=== PATIENT | male | born 1950 | race Caucasian/White ===

== ENCOUNTER 2020-03-06 06:37 | Outpatient (CLI) | payer MEDICARE ==
[2020-03-06 13:52] LABS: Hemoglobin 13.1 g/dL (14.0-18.0); Mean Corpuscular HGB CONC 31.2 G/DL (32.0-36.0); Mean Corpuscular Volume 86.6 fl (80.0-100.0); Mean Platelet Volume 8.4 fl (7.4-10.4); Platelet Count 309 10x3/uL (130-400); RBC Distribution Width 16.4 % (11.5-14.5); Red Blood Cell (RBC) Count 4.85 10x6/uL (4.40-5.80); White Blood Cell (WBC) Count 10.3 10x3/uL (4.5-11.0)
[2020-03-06 14:02] LABS: Anion Gap 18 mmol/L (10-20); BUN (Urea Nitrogen) 13 mg/dL (8.4-25.7); Calc. Creatinine Clearance 0 mL/min (70-130); Calcium 9.2 mg/dL (7.8-10.44); Carbon Dioxide 22 mmol/L (23-31); Chloride 98 mmol/L (98-107); Estimated GFR-MDRD 76; Glucose 127 mg/dL (80-115); Potassium 4.8 mmol/L (3.5-5.1); Sodium 133 mmol/L (136-145)
[2020-03-07 03:08] LABS: SARS-CoV-2 MS2 Positive; SARS-CoV-2 N Gene Negative; SARS-CoV-2 S Gene Negative; SARS-CoV-2 by NAA Not Detected (NotDetected); SARS-CoV-2 orf1ab Negative
--- NOTE | 2020-03-08 07:05 | EKG ---
Test Reason : Blood Pressure : / mmHG Vent. Rate : 112 BPM Atrial Rate : 112 BPM P-R Int : 160 ms QRS Dur : 098 ms QT Int : 334 ms P-R-T Axes : 056 070 059 degrees QTc Int : 455 ms Sinus tachycardia Possible Left atrial enlargement Borderline ECG Confirmed by DR. Celeste OSMAN ([id number]) on 03/08/2020 7:05:18 AM Referred By: MERVIN Confirmed By:DR. Celeste OSMAN
== END 2020-03-06 06:38 | disposition home or self-care (01) ==
LOC: LABBT 06:37
PROVIDERS: ATTEND Neurological Surgery
DX: Z01.818 Encounter for other preprocedural examination (principal); S83.206A Unspecified tear of unspecified meniscus, current injury, right knee, initial encounter; Z20.828 Contact with and (suspected) exposure to other viral communicable diseases
CPT/HCPCS: 80048; 85027; 93005; U0003; 87635; 93010

== ENCOUNTER 2020-03-11 06:24 | Observation (INO) | payer MEDICARE ==
[2020-03-11] MEDS ORDERED: Sodium Chloride 0.9% 10 ML ONE ×3 (06:40→17:20)
[2020-03-11] MEDS ORDERED: Fentanyl 100 MCG/2 ML VIAL ONE (07:00)
[2020-03-11] MEDS ORDERED: Famotidine/PF 20 mg/2ml Vial ONE (07:46)
[2020-03-11] MEDS ORDERED: SUGAMMADEX SODIUM 200 MG/2 ML VIAL ONE (07:53)
[2020-03-11] MEDS ORDERED: Promethazine HCl 25 MG/ML VIAL SLOW IVP PRN (09:34)
[2020-03-11] MEDS ORDERED: Promethazine HCl 25 MG/ML VIAL IM PRN (09:34)
[2020-03-11] MEDS ORDERED: HYDROmorphone 2 MG/ML VIAL SLOW IVP PRN (09:34)
[2020-03-11] MEDS ORDERED: Meperidine HCl/PF 25 MG/ML VIAL SLOW IVP PRN (09:34)
--- NOTE | 2020-03-11 10:23 | OP ---
DATE OF PROCEDURE: 03/11/2020 FLAT BED KNITTER: Nikhil. PROCEDURES PERFORMED: Anterior cervical diskectomy, C5-C6 and C6-C7; interbody arthrodesis; intervertebral biomechanical device; local morselized autograft; demineralized bone matrix; anterior titanium instrumentation, C5-C6 and C6-C7. DESCRIPTION OF PROCEDURE: The patient was brought to the operating room and intubated. He was positioned supine with the head in modest extension on a gel-filled donut. An incision was made in the right precervical area and dissected medial to the sternocleidomastoid muscle, identified the anterior cervical spine and the level was confirmed by x-ray. We debrided the anterior osteophytes, placed distraction across the disk spaces, and using operative microscope and microdissection techniques, completely removed the intervertebral disks at C5-C6 and C6-C7. Next, the bony endplates were decorticated for the purpose of arthrodesis and appropriate-sized intervertebral biomechanical PEEK device was brought into the field, filled with demineralized bone matrix and local morselized autograft, and tapped into place securely at C5-C6 and C6-C7. Next, an anterior plate was brought into the field and secured to C5, C6, and C7 using two 14 mm screws at each level. It should be noted that the plate was separate and distinct and not integral to the intervertebral devices. The wound was extensively irrigated. MAC hemostasis was secured and the wound was closed in anatomic layers. Job ID: [id number]
[2020-03-11] MEDS ORDERED: Succinylcholine 200 MG/10 ml SYRINGE FS ONE (10:25)
[2020-03-11] MEDS ORDERED: Dexamethasone 20 MG/5 ML VIAL ONE (10:25)
[2020-03-11] MEDS ORDERED: Rocuronium Bromide 10 MG/ML (10ML VIAL) ONE (10:25)
[2020-03-11] MEDS ORDERED: Lidocaine 1% PF 5 ML VIAL ONE (10:25)
[2020-03-11] MEDS ORDERED: PROPOFOL 200 MG/20 ML VIAL ONE (10:25)
[2020-03-11] MEDS ORDERED: Ondansetron PF 4 MG/2 ML Vial ONE (10:25)
[2020-03-11] MEDS ORDERED: Ketorolac Tromethamine 30 MG/ML VIAL ONE (10:25)
[2020-03-11] MEDS ORDERED: diphenhydrAMINE 25 MG CAP PO PRN (11:00)
[2020-03-11] MEDS ORDERED: Morphine 2 MG/ML VIAL SLOW IVP PRN (11:00)
[2020-03-11] MEDS ORDERED: Milk Of Magnesia 30 ML UDCUP PO PRN (11:00)
[2020-03-11] MEDS ORDERED: traMADol HCl 50 MG TAB PO PRN ×2 (11:00)
[2020-03-11] MEDS ORDERED: diphenhydrAMINE 50 MG/ML VIAL IVP PRN (11:00)
[2020-03-11] MEDS ORDERED: Ondansetron PF 4 MG/2 ML Vial IVP PRN (11:00)
[2020-03-11] MEDS ORDERED: Mag-Al 1200 mg/1200 mg/30 ML UDCUP PO PRN (11:00)
[2020-03-11] MEDS ORDERED: Acetaminophen/Codeine 30-300mg Tablet PO PRN ×2 (11:00)
[2020-03-11] MEDS ORDERED: tiZANidine HCl 4 MG TAB PO PRN (11:00)
[2020-03-11] MEDS ORDERED: Gabapentin 300 MG CAP ONE (15:23)
[2020-03-11] MEDS ORDERED: Tamsulosin HCl 0.4 MG CAP ONE (15:24)
[2020-03-11] MEDS ORDERED: Morphine 2 MG/ML VIAL ONE (15:49)
[2020-03-11] MEDS ORDERED: Labetalol HCl 100 MG/20 ML VIAL ONE (17:01)
[2020-03-11] MEDS: Sodium Chloride 0.9% 1,000 ML IV SCH (18:29)
[2020-03-11] MEDS: CEFAZOLIN 2 GM in Premix Bag 1 BAG IVPB SCH (18:30)
[2020-03-11] MEDS: Gabapentin 300 MG CAP PO SCH (21:42)
[2020-03-12] MEDS: CEFAZOLIN 2 GM in Premix Bag 1 BAG IVPB SCH ×2 (00:03→10:49)
[2020-03-12] MEDS: Sodium Chloride 0.9% 1,000 ML IV SCH (01:35)
[2020-03-12] MEDS ORDERED: Tamsulosin HCl 0.4 MG CAP PO SCH (06:00)
[2020-03-12] MEDS ORDERED: FLU VACC QS2020-21(65YR UP)/PF 240 MCG/0.7 ML SYRINGE IM ONE (09:00)
[2020-03-12] MEDS: Gabapentin 300 MG CAP PO SCH (10:48)
[2020-03-12 12:19] VITALS: TEMP 98.6
[2020-03-12 12:22] VITALS: BP 145/81
--- NOTE | 2020-03-13 06:44 | DIS ---
DATE OF ADMISSION: 03/11/2020 DATE OF DISCHARGE: 03/12/2020 PROCEDURE: C5-C7 anterior cervical discectomy and fusion. DISCHARGE SUMMARY: The patient is a 69-year-old male, recently evaluated in our office for progressive neck pain. 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 He underwent C5-C7 ACDF on 03/11/2020. Following the surgery, he was transitioned to the Med/Surg floor, where his pain was well controlled with p.o. medications, he was tolerating a regular diet, and he was voiding appropriately. He was ambulating easily in the hallway. He had 35 mL out from his KISHORE over the first night. This was removed on postoperative day #1. I discussed home care precautions and I will follow up with the patient in 2 weeks. Scripts for Tylenol 3 and Zanaflex sent to his pharmacy electronically. CONSUMER SALES REPRESENTATIVE [employer]AR[employer] checked prior to discharge. Job ID: [id number]
== END 2020-03-12 12:24 | disposition home or self-care (01) ==
LOC: SDC 06:24 → SJJU 10:12
PROVIDERS: ADMIT Neurological Surgery; ATTEND Neurological Surgery
PROC: 0RG20A0 Fusion of 2 or more Cervical Vertebral Joints with Interbody Fusion Device, Anterior Approach, Anterior Column, Open Approach (ICD-10-PCS; principal; 2020-03-11)
PROC: 0RG2070 Fusion of 2 or more Cervical Vertebral Joints with Autologous Tissue Substitute, Anterior Approach, Anterior Column, Open Approach (ICD-10-PCS; 2020-03-11)
PROC: 0RT30ZZ Resection of Cervical Vertebral Disc, Open Approach (ICD-10-PCS; 2020-03-11)
DX: M54.12 Radiculopathy, cervical region (principal); I10 Essential (primary) hypertension; Z88.6 Allergy status to analgesic agent; Z88.8 Allergy status to other drugs, medicaments and biological substances
CPT/HCPCS: 20930; 20936; 22551; 22552; 22853 ×2; 76000; 96365; 97139 ×2; C1713 ×4; C1776; G0378 ×2; J2270; J0690; J1100; J1885; J2405; J2704; J3010; J3490; S0028

== ENCOUNTER 2020-04-01 09:47 | Outpatient (CLI) | payer MEDICARE ==
--- NOTE | 2020-04-01 10:03 | RAD ---
XR Cerv Sp Ap Lat STANDARD History: Cervical radiculopathy Comparison: None. Findings: ACDF C5-C7. There is height loss of the C7 vertebral body. Severe facet arthrosis C5/C6. Partial ossification of the C2-C4 vertebral bodies. High-grade vascular calcifications. Lung apices are clear. Impression: 1. Satisfactory appearance of the C5-C7 hardware with height loss of the C7 vertebral body anteriorly . 2. 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
== END 2020-04-01 09:48 | disposition home or self-care (01) ==
LOC: TBSIIMAG 09:47
PROVIDERS: ATTEND Neurological Surgery
DX: M54.12 Radiculopathy, cervical region (principal); Z98.1 Arthrodesis status
CPT/HCPCS: 72040